=== PATIENT | female | born 1965 | race Caucasian/White ===

== ENCOUNTER 2024-03-05 15:08 | Emergency (ER) | payer BC, SELFPAY ==
[2024-03-05 15:17] VITALS: BP 164/86
--- NOTE | 2024-03-05 15:55 | ED.GENMED ---
History of Present Illness
<HILDA Martinez - Last Filed: 03/05/24 21:27>
General
Chief Complaint: Foreign Body Ingestion
Source: patient
Exam Limitations: none
Time Seen by Provider: 03/05/24 15:48
Nursing documentation reviewed up to this point in time: agreed with
History of Present Illness
History of Present Illness:
58-year-old female presents to the ER for evaluation. Patient was at dentist getting a hard reline of her dentures and while having that done and felt like she swallowed something. Dentist did call prior to arrival stating that she was having
dentures fitted and swallowed or aspirated a piece of the bony material. Patient presents to the ER stating that she does feel something in her throat when she swallows and she has pain in her throat when swallowing. She is however able to
tolerate secretions and swallow. She denies shortness of breath
Review of Systems
<HILDA Martinez - Last Filed: 03/05/24 21:27>
Review of Systems
Allergies reviewed?: Yes
All Other Systems: ROS reviewed and negative except as documented in HPI and ROS
Constitutional: Reports no symptoms
EENT: Reports other (Foreign body sensation in throat; able to swallow and tolerate her secretions)
Respiratory: Reports no symptoms; Denies trouble breathing
Cardiac: Reports no symptoms
ABD/GI: Reports no symptoms
Musculoskeletal: Reports no symptoms
Skin: Reports no symptoms
Neurological: Reports no symptoms
Psychiatric: Reports no symptoms
Phy Exam
<HILDA Martinez - Last Filed: 03/05/24 21:27>
General Physical Exam
General Presentation: no apparent distress
General age: appears stated age
General Skin: warm and dry
General Habitus: normal
General Mental: alert
General Hydration: appears well hydrated
ENT Exam
ENT Exam: EOMI, neck supple and other (Pharynx patent ;no drooling tolerating secretions well ; able to drink fluids )
Cardiovascular Exam
Cardiovascular Exam: regular rate/rhythm, no murmur and normal peripheral pulses
Pulmonary Exam
Pulmonary Exam: lungs clear and no respiratory distress
Neurological Exam
Neurological Exam: alert and oriented x3
Musculoskeletal Exam
Musculoskeletal Exam: full ROM
Skin Exam
Skin Exam: normal color and warm/dry
Psychiatric Exam
Psychiatric Exam: normal mood/affect
Course
<HILDA Martinez - Last Filed: 03/05/24 21:27>
Orders/Labs/Results
Orders:
Orders
03/05/24 15:22
CR Soft Tissue Neck Urgent
Comment:
Reason For Exam: foriegn body
Chest Single View Frontal CR [CR Chest Single View] Urgent
Comment:
Reason For Exam: foreighn body
03/05/24 16:36
Lidocaine Visc/Maalox/Benadryl [Magic or Miracle Mouthwash] 10 ml PO NOW STA
03/05/24 19:08
Electrocardiogram (*1) Urgent
Reason for Study: Abdominal Pain
EKG- Treatment ONCE
Vital Signs
Initial and Last Documented VS:
Initial Vital Signs
Temp Pulse Resp BP Pulse Ox
98.0 F 71 18 164/86 99
03/05/24 15:17 03/05/24 15:17 03/05/24 15:17 03/05/24 15:17 03/05/24 15:17
Last Documented Vital Signs
Temp Pulse Resp BP Pulse Ox
98.0 F 66 16 139/87 98
03/05/24 15:17 03/05/24 20:45 03/05/24 20:45 03/05/24 20:25 03/05/24 20:16
<Brad Cr MD - Last Filed: 03/05/24 21:23>
Orders/Labs/Results
Orders:
Orders
03/05/24 15:22
CR Soft Tissue Neck Urgent
Comment:
Reason For Exam: foriegn body
Chest Single View Frontal CR [CR Chest Single View] Urgent
Comment:
Reason For Exam: foreighn body
03/05/24 16:36
Lidocaine Visc/Maalox/Benadryl [Magic or Miracle Mouthwash] 10 ml PO NOW STA
03/05/24 19:08
Electrocardiogram (*1) Urgent
Reason for Study: Abdominal Pain
EKG- Treatment ONCE
Vital Signs
Initial and Last Documented VS:
Initial Vital Signs
Temp Pulse Resp BP Pulse Ox
98.0 F 71 18 164/86 99
03/05/24 15:17 03/05/24 15:17 03/05/24 15:17 03/05/24 15:17 03/05/24 15:17
Last Documented Vital Signs
Temp Pulse Resp BP Pulse Ox
98.0 F 66 16 139/87 98
03/05/24 15:17 03/05/24 20:45 03/05/24 20:45 03/05/24 20:25 03/05/24 20:16
<HILDA Martinez - Last Filed: 03/05/24 21:27>
MDM/Problems Addressed
MDM/Problems Addressed:
As documented patient is a 50-year-old female who was having a dental procedure when she believes she may have swallowed part of the bonding. She was sent by the dentist. Patient presents awake alert no acute distress she is tolerating secretions
well, no drooling and able to drink fluids no complaint of shortness of breath however complains of an irritated feeling in her throat upper chest.
Chest x-ray and soft tissue neck were negative.
Case reviewed with GI Case also reviewed with ENT.
Pt received magic mouthwash which seems to have slightly improved this sensation
1899 RN informed me that pt received a total of 90 ml of medication 30 mL of viscous lidocaine, 30 ml of Benadryl and 30 ml of maalox. Patient was ordered 10 mL total.
Max dose of lidocaine on bottle as per pharmacist is listed as 4.5 mg/kg not to exceed 300 mg.
EKG ordered. Case d/c with ED physician. discussed with [facility] . no acute finding on EKG. REcommends monitoring.
Pt c/o of feeling dizzy, slightly nauseous. She denies shortness of breath .
Patient's nausea dizziness has resolved she remains stable no acute distress stable vital signs.
2119: ED physician ralph pt. Patient self-induced vomiting and coughed up what appears to be plastic bonding (dental ) material. now feeling much better only feels slight irritation but denies a foreign body sensation.
Will d/c home on PPI .
<HILDA Martinez - Last Filed: 03/05/24 21:27>
*Critical Care Note
Total Time (30-74mins, 75-104mins- exclusive of procedures): Not Applicable
<HILDA Martinez - Last Filed: 03/05/24 21:27>
Patient Management
Discussion with other providers: Ring Packer (DR. [facility] and ENT DR Ruiz )
ED Attending Note
<HILDA Martinez - Last Filed: 03/05/24 21:27>
-
Portions of this chart may have been created with voice recognition software.� Occasional wrong word or��sound alike� substitutions may have occurred due to the inherent limitations of voice recognition software.
<Brad Cr MD - Last Filed: 03/05/24 21:23>
ED Attending Note
Patient seen and examined by attending physician: Yes
ED Attending Note:
I have seen and evaluated the patient with a [id number] encounter. I have spoken to the advance practicer provider and involved in the medical history, the physical exam, medical decision making.
Evaluation and management service: agree unless noted differently below.
Results interpretation: agree unless noted differently below.
Focused HPI: 58-year-old female with a past medical history of hypertension, IBS, asthma who presents to the emergency room sent in by her dentist for evaluation of dysphagia and odynophagia and concern for esophageal foreign body. Apparently
swallowed some bonding material and has had sense of foreign body stuck in her esophagus since. No shortness of breath, coughing or respiratory issues.
Physical exam: Awake and alert not in distress. Vital signs normal. Lungs clear. No stridor. Handling secretions. No foreign body in the upper airway.
Medical Decision Makin-year-old female presents for odynophagia and dysphagia after swallowing vomiting bonding material from the dentist office. Handling secretions and able to swallow liquids. X-ray of the chest and neck showed no clear
radiopaque foreign body. She was treated with GI cocktail with did not improve her symptoms. Discussed with ENT and GI; initial suggestion was possibly for admission for endoscopy in the morning but patient had an episode of vomiting and brought
up a flat disc of bonding material approximately 1 cm diameter with resolution of her symptoms. Stable for discharge on PPI.
Discharge Plan
Departure
Referrals:
UNKNOWN - PT DOES,NOT KNOW [Family Provider] -
Interventions
Interventions:
*Risk Screen - Suicide Last Done: 03/05/24 15:51
*General Assessment Last Done: 03/05/24 15:51
*Neglect/Abuse Screening Last Done: 03/05/24 15:51
*ED COVID-19 Vaccine History Last Done: 03/05/24 15:51
GM-Npykon-Plriapmhqd Assessment Last Done: 03/05/24 15:51
ED- Pulmonary Assessment Last Done: 03/05/24 15:51
ED-EENT Assessment Last Done: 03/05/24 15:51
Discharge Date and Time
Print Language: SUDANESE
[2024-03-05] MEDS: MAGIC OR MIRACLE MOUTHWASH 10 ML PO (17:25)
[2024-03-05 18:56] VITALS: BP 155/84
[2024-03-05 19:00] VITALS: BP 156/93; BMI 32.2
[2024-03-05 19:45] VITALS: BP 136/81
[2024-03-05 20:00] VITALS: BP 140/76
[2024-03-05 20:25] VITALS: BP 139/87
== END 2024-03-05 21:29 | disposition home or self-care (01) ==
LOC: EMR 15:08
PROVIDERS: EMERGENCY PHYSICIAN Emergency Medicine
DX: T18.108A Unspecified foreign body in esophagus causing other injury, initial encounter (principal); W44.9XXA Unspecified foreign body entering into or through a natural orifice, initial encounter; I10 Essential (primary) hypertension; K58.9 Irritable bowel syndrome, unspecified; J45.909 Unspecified asthma, uncomplicated; R13.10 Dysphagia, unspecified
CPT/HCPCS: 99283; 70360; 71045; 93005